=== PATIENT | male | born 1985 | race Caucasian/White ===

== ENCOUNTER 2016-08-21 13:15 | Emergency (ER) | payer OTHER ==
[2016-08-21 13:31] VITALS: BP 131/83; PULSE 77; RESP 16; TEMP 98.1
[2016-08-21] MEDS ORDERED: IBUPROFEN 600 MG TAB PO STA (13:47)
--- NOTE | 2016-08-21 13:50 | ED ---
ENT HPI - General Chief complaint: Dental/Oral Stated complaint: Jaw Pain Time Seen by Provider: 08/21/16 13:38 Source: patient, RN notes reviewed Mode of arrival: ambulatory Limitations: no limitations - History of Present Illness Initial comments: Patient is a 31-year-old male presents to the emergency room for evaluation of left-sided facial swelling. Patient states he noticed swelling left-sided his face this morning and has increased since. Patient states he is having slight pain on the left side of his lower jaw. Patient does state he has bad teeth. Patient denies any dental pain. Patient states he hasn't been to the dentist in many years. Patient denies taking anything for pain. Patient denies any trouble swallowing or breathing. Patient denies any facial trauma. Patient denies fevers or chills. Patient denies any other symptoms or complaints. - Related Data Previous Rx's Medication Instructions Recorded Ibuprofen [Motrin] 600 mg PO Q6HR PRN #20 tab 08/21/16 Penicillin V Potassium [Pen Vee K] 500 mg PO QID 10 Days 08/21/16 Allergies Allergy/AdvReac Type Severity Reaction Status Date / Time No Known Allergies Allergy Verified 08/21/16 13:37 Review of Systems ROS Statement: Those systems with pertinent positive or pertinent negative responses have been documented in the HPI. ROS Other: All systems not noted in ROS Statement are negative. Past Medical History Past Medical History: Respiratory Disorder Additional Past Medical History / Comment(s): back pain History of Any Multi-Drug Resistant Organisms: MRSA Date of last positivie culture/infection: 2008 MDRO Source:: finger Past Surgical History: No Surgical Hx Reported Past Psychological History: No Psychological Hx Reported Smoking Status: Never smoker Past Alcohol Use History: Occasional Past Drug Use History: None Reported General Exam - General Exam Comments Initial Comments: Sitting in exam room, no acute distress. Limitations: no limitations General appearance: alert, in no apparent distress Head exam: Present: atraumatic, normocephalic, normal inspection Eye exam: Present: normal appearance ENT exam: Present: normal exam, other (Left-sided facial edema over the left mandible) Expanded Teeth exam: Present: dental caries (Multiple eroded teeth, very poor dentition) . Absent: normal inspection, dental tenderness # Neck exam: Present: normal inspection Respiratory exam: Present: normal lung sounds bilaterally. Absent: respiratory distress Cardiovascular Exam: Present: regular rate, normal rhythm, normal heart sounds Neurological exam: Present: alert, oriented X3, CN II-XII intact Psychiatric exam: Present: normal affect, normal mood Skin exam: Present: warm, dry, intact, normal color. Absent: rash Course Vital Signs 08/21/16 13:28 Temperature 98.1 F Pulse Rate 77 Respiratory 16 Rate Blood Pressure 131/83 O2 Sat by Pulse 98 Oximetry Medical Decision Making - Medical Decision Making Patient is a 31-year-old male presents to the emergency room for evaluation of left facial edema. Patient willl be placed on antibiotics and advised to follow -up with a dentist. Patient states he understands everything that was discussed with him. Return parameters discussed. Disposition Clinical Impression: Dental caries, Dental abscess Disposition: HOME SELF-CARE Condition: Good Instructions: Dental Abscess (ED), Dental Caries (ED) Additional Instructions: Please follow up with a dentist. If you do not have a dentist, you may contact [facility]. Phone number is [phone] for existing clients. For new clients you may call [phone]. Another option is you have is the [facility]. Phone number is [phone]. Medications as directed. [place] gargles. Cold fluids can sometimes help with pain as well. Return to the Emergency Room for any worsening or changing symptoms. Use cold compresses to the outside of the face. Prescriptions: Ibuprofen [Motrin] 600 mg PO Q6HR PRN #20 tab PRN Reason: Pain Penicillin V Potassium [Pen Vee K] 500 mg PO QID 10 Days Referrals: Lu Ratliff MD [Primary Care Provider] - 1-2 days Time of Disposition: 13:50
== END 2016-08-21 14:02 | disposition home or self-care (01) ==
LOC: EC 13:15
DX: K04.7 Periapical abscess without sinus (principal); K02.9 Dental caries, unspecified
CPT/HCPCS: 99283

== ENCOUNTER 2018-01-01 08:04 | Emergency (ER) | payer OTHER ==
[2018-01-01 08:10] VITALS: RESP 18
[2018-01-01] MEDS ORDERED: KETOROLAC 60 MG/2 ML VIAL IM STA (08:18)
--- NOTE | 2018-01-01 08:21 | ED ---
General Adult HPI - General Chief complaint: Back Pain/Injury Stated complaint: [facility] - BACK PAIN Time Seen by Provider: 01/01/18 08:12 Source: patient, RN notes reviewed Mode of arrival: ambulatory Limitations: no limitations - History of Present Illness Initial comments: Patient is a 32-year-old male presents emergency room today with a chief complaint of lower back pain that started this morning after he tried to lift something at work. Patient states he was picking up something that we approximate 40 pounds when he went to stand up felt a pop in his lower back. Patient states that when he stands feels that there is increased pain and weakness to his legs. He denies any bowel or bladder incontinence retention. Denies any saddle anesthesia. Does admit to a history of a bulging disc. Patient states that it feels better when he is sitting. Patient states denies any other complaints or symptoms. Patient denies any recent fever, chills, shortness of breath, chest pain, abdominal pain, nausea or vomiting, numbness or tingling,headaches or visual changes, or any other complaints. - Related Data Previous Rx's Medication Instructions Recorded Ibuprofen [Motrin] 600 mg PO Q6HR PRN #20 tab 08/21/16 Penicillin V Potassium [Pen Vee K] 500 mg PO QID 10 Days tab 08/21/16 Cyclobenzaprine [Flexeril] 10 mg PO TID #20 tab 01/01/18 Ibuprofen [Motrin] 800 mg PO Q6HR #30 tab 01/01/18 Allergies Allergy/AdvReac Type Severity Reaction Status Date / Time No Known Allergies Allergy Verified 01/01/18 08:10 Review of Systems ROS Statement: Those systems with pertinent positive or pertinent negative responses have been documented in the HPI. ROS Other: All systems not noted in ROS Statement are negative. Past Medical History Past Medical History: Respiratory Disorder Additional Past Medical History / Comment(s): back pain History of Any Multi-Drug Resistant Organisms: MRSA Date of last positivie culture/infection: 2008 MDRO Source:: finger Past Surgical History: No Surgical Hx Reported Past Psychological History: No Psychological Hx Reported Smoking Status: Never smoker Past Alcohol Use History: Occasional Past Drug Use History: None Reported General Exam - General Exam Comments Initial Comments: General: The patient is awake and alert, in no distress, and does not appear acutely ill. Neck: The neck is supple, there is no tenderness or JVD. Cardiovascular: There is a regular rate and rhythm. No murmur, rub or gallop is appreciated. Respiratory: Lungs are clear to auscultation, respirations are non-labored, breath sounds are equal. No wheezes, stridor, rales, or rhonchi. Musculoskeletal: Normal ROM. No spinal tenderness over the thoracic or lumbar spine. No step-off deformity. Sensation intact. Strength 5/5. Pedal pulse 2+ . Neurological: A&O x 3. CN II-XII intact, There are no obvious motor or sensory deficits. Coordination appears grossly intact. Speech is normal. Skin: Skin is warm and dry and no rashes or lesions are noted. Psychiatric: Cooperative, appropriate mood & affect, normal judgment. Limitations: no limitations Course Vital Signs 01/01/18 08:06 Temperature 99.7 F H Pulse Rate 79 Respiratory 18 Rate Blood Pressure 143/79 O2 Sat by Pulse 98 Oximetry Medical Decision Making - Medical Decision Making X-ray reviewed negative for any acute abnormality. Results were discussed with the patient. Patient is advised to refrain from heavy lifting or bending at the waist. He is advised to follow-up with employee health or orthopedics for further evaluation. Patient will be started on anti-inflammatories, muscle relaxers in the emergency room. Patient is advised return if any symptoms increase worsen or for new concerns. Disposition Clinical Impression: Acute low back pain Disposition: HOME SELF-CARE Condition: Good Instructions: Acute Low Back Pain (ED) Additional Instructions: Please use medication as discussed. Please follow-up with family doctor in the next 2 days of symptoms have not improved. Please return to emergency room if the symptoms increase or worsen or for any other concerns. Prescriptions: Cyclobenzaprine [Flexeril] 10 mg PO TID #20 tab Ibuprofen [Motrin] 800 mg PO Q6HR #30 tab Is patient prescribed a controlled substance at d/c from ED?: No Referrals: Lu Ratliff MD [Primary Care Provider] - 1-2 days Time of Disposition: 09:07
--- NOTE | 2018-01-01 08:45 | XR ---
EXAMINATION TYPE: XR lumbar spine 2 or 3V , 3 VIEWS DATE OF EXAM ORDERED: 01/01/2018 HISTORY: Pain. COMPARISON: None. FINDINGS: Vertebral body height and alignment are maintained. No fractures are seen. There is no spo ndylolysis or spondylolisthesis. The pedicles are intact. IMPRESSION: NORMAL LUMBAR SPINE.
[2018-01-01 09:42] VITALS: BP 132/70; PULSE 75; TEMP 98.9
== END 2018-01-01 09:33 | disposition home or self-care (01) ==
LOC: EC 08:04
DX: M54.5 Low back pain (principal); Z86.14 Personal history of Methicillin resistant Staphylococcus aureus infection
CPT/HCPCS: 72100; 99283; 96372; J1885

== ENCOUNTER 2018-01-21 14:43 | Emergency (ER) | payer BC, OTHER ==
[2018-01-21 14:54] VITALS: TEMP 98.1
[2018-01-21] MEDS ORDERED: PROPARACAINE 0.5% OPHTH DROPS 15 ML BTL RIGHT EYE STA (15:10)
--- NOTE | 2018-01-21 15:13 | ED ---
General Adult HPI - General Chief complaint: ENT Stated complaint: corneal abrasion(pine needle) Source: patient, RN notes reviewed, old records reviewed Mode of arrival: ambulatory Limitations: no limitations - History of Present Illness Initial comments: 32-year-old male patient with no pertinent past history presents to ED with eye pain. Patient states that approximately 2.5 hours ago he was cutting down a [place] tree, was poked by one of the pine needles into his right eye. Patient states that since then he said eye irritation, eye watering. They states that he believes he is having some blurred vision from the eye tearing. Patient denies other complaints. Systemic: Pt denies fatigue, myalgia, fever/chills, rash. Pt denies weakness, night sweats, weight loss. Neuro: Pt denies headache, visual disturbances, syncope or pre-syncope. HEENT: Pt denies otalgia, rhinorrhea, pharyngitis, diploplia or notable lymphadenopathy. Cardiopulmonary: Pt denies chest pain, SOB, heart palpitations, dyspnea on exertion. Abdominal/GI: Pt denies abdominal pain, n/v/d. : Pt denies dysuria, burning w/ urination, frequency/urgency. Denies new onset urinary or bowel incontinence. MSK: Pt denies myalgia, loss of strength or function in extremities. - Related Data Previous Rx's Medication Instructions Recorded Cyclobenzaprine [Flexeril] 10 mg PO TID #20 tab 01/01/18 Ibuprofen [Motrin] 800 mg PO Q6HR #30 tab 01/01/18 Gentamicin 0.3% Ophth Oint [Gentak 1 applic RIGHT EYE Q8H #1 tube 01/21/18 0.3% Ophth Oint] Allergies Allergy/AdvReac Type Severity Reaction Status Date / Time No Known Allergies Allergy Verified 01/21/18 14:51 Review of Systems ROS Statement: Those systems with pertinent positive or pertinent negative responses have been documented in the HPI. ROS Other: All systems not noted in ROS Statement are negative. Past Medical History Past Medical History: Respiratory Disorder Additional Past Medical History / Comment(s): back pain History of Any Multi-Drug Resistant Organisms: MRSA Date of last positivie culture/infection: 2008 MDRO Source:: finger Past Surgical History: No Surgical Hx Reported Past Psychological History: No Psychological Hx Reported Smoking Status: Never smoker Past Alcohol Use History: None Reported Past Drug Use History: None Reported General Exam - General Exam Comments Initial Comments: Constitutional: NAD, AOX3, Pt has pleasant affect. HEENT: NC/AT, trachea midline, neck supple, no lymphadenopathy. Posterior pharynx non erythematous, without exudates. External ears appear normal, without discharge. Mucous membranes moist. Eyes PERRLA, EOM intact. No injection. Fluorescein stain revealed small corneal abrasion at approximately 9 :00. There is no scleral icterus. No pallor noted. Cardiopulmonary: RRR, no murmurs, rubs or gallops, no JVD noted. Lungs CTAB in anterior and posterior mcdonough. No peripheral edema. Abdominal exam: Abdomen soft and non-distended. Abdomen non-tender to palpation in all 4 quadrants. Bowel sounds active in LLQ. No hepatosplenomegaly. Neuro: CN II-XII intact. No focal deficit, no facial droop, full active range of motion in upper and lower extremities, full sensation intact. Limitations: no limitations Course Vital Signs 01/21/18 14:51 Temperature 98.1 F Pulse Rate 71 Respiratory 18 Rate Blood Pressure 120/77 O2 Sat by Pulse 97 Oximetry Medical Decision Making - Medical Decision Making 32-year-old male patient with no pertinent past history presents to ED with eye pain. Patient states that approximately 2.5 hours ago he was cutting down a [place] tree, was poked by one of the pine needles into his right eye. Patient states that since then he said eye irritation, eye watering. They states that he believes he is having some blurred vision from the eye tearing. Patient denies other complaints. Physical exam revealed intact extraocular movements, eyes PERRLA, no injection, no scleral icterus. Patient seen revealed a small corneal abrasion at 9:00. No other abnormal findings on the floor sustained. Patient to be discharged with gentamicin ointment which he'll take for 5 days. Patient to follow up with contract admin tomorrow. Patient to follow up with PCP in 1-2 days. Patient to return to ED if any new signs or symptoms develop including worsening pain right eye, decreased vision, chest pain, shortness breath, any other new symptoms. Case discussed with Dr. Silva. Disposition Clinical Impression: Corneal abrasion, right Disposition: HOME SELF-CARE Condition: Good Instructions: Abrasion (ED) Additional Instructions: Patient to adhere to previously discussed treatment plan and will take medication(s) as directed. Patient to follow up with PCP in 1-2 days. Follow up with optho in 1-2 days Patient to return to ED if symptoms do not improve. Prescriptions: Gentamicin 0.3% Ophth Oint [Gentak 0.3% Ophth Oint] 1 applic RIGHT EYE Q8H #1 tube Is patient prescribed a controlled substance at d/c from ED?: No Referrals: Lu Ratliff MD [Primary Care Provider] - 1-2 days Jack Carson MD [STAFF PHYSICIAN] - 1-2 days Time of Disposition: 16:13
[2018-01-21 17:00] VITALS: BP 136/81; PULSE 70; RESP 16
== END 2018-01-21 16:55 | disposition home or self-care (01) ==
LOC: EC 14:43
DX: S05.01XA Injury of conjunctiva and corneal abrasion without foreign body, right eye, initial encounter (principal); Z86.14 Personal history of Methicillin resistant Staphylococcus aureus infection; W22.8XXA Striking against or struck by other objects, initial encounter; Y93.89 Activity, other specified
CPT/HCPCS: 99283

== ENCOUNTER 2019-08-23 12:09 | Emergency (ER) | payer BC, OTHER ==
[2019-08-23 12:17] VITALS: TEMP 98.4
[2019-08-23] MEDS ORDERED: SODIUM CHLORIDE 0.9% 1,000 ML IV STA (12:53)
[2019-08-23] MEDS ORDERED: KETOROLAC 30 MG/ML 1 ML VIAL IVP STA (12:53)
--- NOTE | 2019-08-23 13:44 | ED ---
Abdominal Pain HPI - General Chief Complaint: Abdominal Pain Stated Complaint: Back and abd pain Time Seen by Provider: 08/23/19 12:18 Source: patient, RN notes reviewed, old records reviewed Mode of arrival: ambulatory Limitations: no limitations - History of Present Illness Initial Comments: Is a 34-year-old male DF for evaluation patient since today and evaluation of abdominal pain she reviewed pain sided flank pain radiating to groin. Symptoms for a week occasional vomiting. No prior history of similar complaints no surgical history no medical history takes no medications discharged for living but no other significant illness sick contacts or travel history. No fevers MD Complaint: abdominal pain, flank pain (Left-sided) -: week(s) Location: LLQ, suprapubic Radiation: suprapubic Migration to: LLQ, suprapubic Severity: moderate Severity scale (1-10): 7 Quality: aching Consistency: constant Improves With: nothing Worsens With: nothing Associated Symptoms: nausea, vomiting Treatments Prior to Arrival: NSAIDs - Related Data Previous Rx's Medication Instructions Recorded Cyclobenzaprine [Flexeril] 10 mg PO TID #20 tab 01/01/18 Ibuprofen [Motrin] 800 mg PO Q6HR #30 tab 01/01/18 Gentamicin 0.3% Ophth Oint [Gentak 1 applic RIGHT EYE Q8H #1 tube 01/21/18 0.3% Ophth Oint] Allergies Allergy/AdvReac Type Severity Reaction Status Date / Time No Known Allergies Allergy Verified 01/21/18 14:51 Review of Systems ROS Statement: Those systems with pertinent positive or pertinent negative responses have been documented in the HPI. ROS Other: All systems not noted in ROS Statement are negative. Past Medical History Past Medical History: Respiratory Disorder Additional Past Medical History / Comment(s): back pain History of Any Multi-Drug Resistant Organisms: MRSA Date of last positivie culture/infection: 2008 MDRO Source:: finger Past Surgical History: No Surgical Hx Reported Past Psychological History: No Psychological Hx Reported Smoking Status: Never smoker Past Alcohol Use History: None Reported Past Drug Use History: None Reported General Exam Limitations: no limitations General appearance: alert, in no apparent distress Head exam: Present: atraumatic, normocephalic, normal inspection Eye exam: Present: normal appearance, PERRL, EOMI. Absent: scleral icterus, conjunctival injection, periorbital swelling ENT exam: Present: normal exam, mucous membranes moist Neck exam: Present: normal inspection. Absent: tenderness, meningismus, lymphadenopathy Respiratory exam: Present: normal lung sounds bilaterally. Absent: respiratory distress, wheezes, rales, rhonchi, stridor Cardiovascular Exam: Present: regular rate, normal rhythm, normal heart sounds. Absent: systolic murmur, diastolic murmur, rubs, gallop, clicks GI/Abdominal exam: Present: soft, normal bowel sounds. Absent: distended, tenderness, guarding, rebound, rigid Extremities exam: Present: normal inspection, full ROM, normal capillary refill. Absent: tenderness, pedal edema, joint swelling, calf tenderness Back exam: Present: normal inspection Neurological exam: Present: alert, oriented X3, CN II-XII intact Psychiatric exam: Present: normal affect, normal mood Skin exam: Present: warm, dry, intact, normal color. Absent: rash Course Vital Signs 08/23/19 12:13 Temperature 98.4 F Pulse Rate 61 Respiratory 18 Rate Blood Pressure 153/94 O2 Sat by Pulse 99 Oximetry - Reevaluation(s) Reevaluation #1: 08/23/19 13:43 Medical records reviewed Reevaluation #2: 08/23/19 14:12 Patient is currently controlled Medical Decision Making - Medical Decision Making 6 male abdominal pain left-sided kidney stone patient to be discharged with pain control encouraged fluid increase intake and Motrin - Lab Data Result diagrams: 08/23/19 13:32 08/23/19 13:32 Lab Results 08/23/19 08/23/19 08/23/19 Range/Units 13:32 13:32 13:32 WBC 8.4 (3.8-10.6) k/uL RBC 4.75 (4.30-5.90) m/uL Hgb 15.2 (13.0-17.5) gm/dL Hct 43.5 (39.0-53.0) % MCV 91.6 (80.0-100.0) fL MCH 32.0 (25.0-35.0) pg MCHC 34.9 (31.0-37.0) g/dL RDW 12.5 (11.5-15.5) % Plt Count 210 (150-450) k/uL Neutrophils % 62 % Lymphocytes % 30 % Monocytes % 5 % Eosinophils % 1 % Basophils % 0 % Neutrophils # 5.2 (1.3-7.7) k/uL Lymphocytes # 2.5 (1.0-4.8) k/uL Monocytes # 0.4 (0-1.0) k/uL Eosinophils # 0.1 (0-0.7) k/uL Basophils # 0.0 (0-0.2) k/uL Sodium 139 (137-145) mmol/L Potassium 4.2 (3.5-5.1) mmol/L Chloride 105 (98-107) mmol/L Carbon Dioxide 23 (22-30) mmol/L Anion Gap 11 mmol/L BUN 13 (9-20) mg/dL Creatinine 1.04 (0.66-1.25) mg/dL Est GFR (CKD-EPI)AfAm >90 (>60 ml/min/1.73 sqM) Est GFR (CKD-EPI)NonAf >90 (>60 ml/min/1.73 sqM) Glucose 100 H (74-99) mg/dL Plasma Lactic Acid Antonio 0.8 (0.7-2.0) mmol/L Calcium 9.4 (8.4-10.2) mg/dL Total Bilirubin 1.1 (0.2-1.3) mg/dL AST 22 (17-59) U/L ALT 20 (4-49) U/L Alkaline Phosphatase 87 (38-126) U/L Total Protein 7.8 (6.3-8.2) g/dL Albumin 4.7 (3.5-5.0) g/dL Amylase 39 (30-110) U/L Lipase 82 (23-300) U/L - Radiology Data Radiology results: report reviewed (CT pelvis positive for kidney stones L ureter), image reviewed Disposition Clinical Impression: Abdominal pain, Left ureteral calculus Disposition: HOME SELF-CARE Condition: Good Instructions (If sedation given, give patient instructions): Kidney Stones (ED) Is patient prescribed a controlled substance at d/c from ED?: No Referrals: None,Stated [Primary Care Provider] - 1-2 days
[2019-08-23 13:50] LABS: Basophils % (A) 0 %; Eosinophils # (A) 0.1 k/uL (0-0.7); Eosinophils % (A) 1 %; HCT 43.5 % (39.0-53.0); HGB 15.2 gm/dL (13.0-17.5); Lymphocytes # (A) 2.5 k/uL (1.0-4.8); Lymphocytes % (A) 30 %; MCHC 34.9 g/dL (31.0-37.0); MCV 91.6 fL (80.0-100.0); Mean Platelet Volume 7.9; Monocytes # (A) 0.4 k/uL (0-1.0); Monocytes % (A) 5 %; Neutrophils # (A) 5.2 k/uL (1.3-7.7); Neutrophils % (A) 62 %; Platelet Count 210 k/uL (150-450); RBC 4.75 m/uL (4.30-5.90); RDW 12.5 % (11.5-15.5); WBC 8.4 k/uL (3.8-10.6)
[2019-08-23 13:56] LABS: ALT 20 U/L (4-49); AST 22 U/L (17-59); African American GFR (CKD) >90 (>60 ml/min/1.73 sqM); Albumin 4.7 g/dL (3.5-5.0); Alkaline Phosphatase 87 U/L (38-126); Amylase 39 U/L (30-110); Anion Gap 11 mmol/L; Blood Urea Nitrogen 13 mg/dL (9-20); Calcium 9.4 mg/dL (8.4-10.2); Carbon Dioxide 23 mmol/L (22-30); Chloride 105 mmol/L (98-107); Glucose 100 mg/dL (74-99); Non-African American GFR(CKD) >90 (>60 ml/min/1.73 sqM); Potassium 4.2 mmol/L (3.5-5.1); Sodium 139 mmol/L (137-145); Total Bilirubin 1.1 mg/dL (0.2-1.3); Total Protein 7.8 g/dL (6.3-8.2)
--- NOTE | 2019-08-23 13:56 | CT ---
EXAMINATION TYPE: CT abdomen pelvis wo con DATE OF EXAM: 08/23/2019 COMPARISON: None HISTORY: Difficult urination, back pain CT DLP: 1032.4 mGycm Examination of the solid and hollow viscera is limited given the lack of contrast. FINDINGS: LUNG BASES: No evidence for nodule. No evidence for infiltrate. LIVER/GB: The gallbladder is unremarkable. No space-occupying hepatic lesion. PANCREAS: No pancreatic mass identified. No inflammatory process seen. SPLEEN: No evidence for splenomegaly. No intrasplenic lesions seen. ADRENALS: No adrenal nodules identified. No evidence for thickening. KIDNEYS: Somewhat low-lying and malrotated left kidney. Obstructing distal left ureteral calculus jessica suring 3 mm at the mid sacral level resulting in mild left-sided hydronephrosis and perinephric stran ding. Nonobstructing right-sided nephrolithiasis. BOWEL: Appendix has a normal appearance. No evidence of bowel obstruction. No inflammatory process. Lymph nodes: No evidence for adenopathy greater than 1 cm. Abdominal aorta: Atheromatous changes seen. No evidence for aneurysm. Genital organs: No significant abnormality. Other: No significant abnormality. IMPRESSION: Obstructing distal left ureteral calculus measuring 3 mm at the mid sacral level resulting in mild le ft-sided hydronephrosis and perinephric stranding.
[2019-08-23] MEDS ORDERED: TAMSULOSIN 0.4 MG CAP.ER.24H PO STA (14:12)
[2019-08-23] MEDS ORDERED: Acetaminophen-Codeine 300-30mg TAB PO STA (14:12)
[2019-08-23] MEDS ORDERED: ACET/COD 300 MG/30 MG STARTER PACK 6 TAB BTL PO STA (14:12)
[2019-08-23 14:34] VITALS: RESP 20
[2019-08-23 14:35] VITALS: BP 148/93; PULSE 62
== END 2019-08-23 14:32 | disposition home or self-care (01) ==
LOC: EC 12:09
DX: N20.2 Calculus of kidney with calculus of ureter (principal); Z86.14 Personal history of Methicillin resistant Staphylococcus aureus infection
CPT/HCPCS: 36415; 80053; 82150; 83605; 83690; 85025; 74176; 99285; 96374; 96361; J1885

== ENCOUNTER → 2022-11-08 | Outpatient (CLI) | payer BC, OTHER ==
--- NOTE | 2022-11-08 09:11 | US ---
EXAMINATION TYPE: US abdomen complete DATE OF EXAM: 11/08/2022 COMPARISON: CT abdomen pelvis 08/23/2019 CLINICAL INDICATION: Male, 37 years old with history of N40.1 ENLARGE PROSTATE WITH URINARY SX; diffi culty urinating TECHNIQUE: Multiple sonographic images of the abdomen are obtained. FINDINGS: EXAM MEASUREMENTS: Liver Length: 19.4 cm Gallbladder Wall: 0.3 cm CBD: 0.4 cm Spleen: 12.0 cm Right Kidney: 12.6 x 4.5 x 6.1 cm Left Kidney: 9.0 x 3.5 x 3.6 cm ANESTHESIA TECH NOTES: *Technical limitations due to large amount of overlying bowel gas Pancreas: Obscured by bowel gas Liver: enlarged Gallbladder: no evidence of stones Evidence for sonographic Gilmore's sign: no CBD: limited evaluation Spleen: wnl Right Kidney: no evidence of hydronephrosis Left Kidney: low-lying, no evidence of hydronephrosis Upper IVC: wnl Abd Aorta: wnl The liver is homogenous and mildly enlarged. No focal lesion. The intrahepatic portion of the IVC an d proximal abdominal aorta are within normal limits. There is no evidence of cholelithiasis. Common bile duct is unremarkable. The pancreas is obscured by overlying bowel gas. The spleen is unremark able. Kidneys are symmetric and free of hydronephrosis. No renal lesions are seen. Low-lying appear ance of the left kidney. IMPRESSION: 1. No ultrasound evidence for an acute process. 2. Hepatomegaly.
== END | disposition home or self-care (01) ==
LOC: RADUSWWP 07:50
PROVIDERS: ATTEND Internal Medicine Geriatric Medicine
DX: N40.1 Benign prostatic hyperplasia with lower urinary tract symptoms (principal); R16.0 Hepatomegaly, not elsewhere classified; R39.198 Other difficulties with micturition
CPT/HCPCS: 76700